=== PATIENT | male | born 1955 | race Caucasian/White ===

== ENCOUNTER 2018-03-24 06:08 | Day surgery (SDC) | payer OTHER ==
[~2018-03-24] VITALS: Ht 175.2 cm; Wt 102.2 kg
[~2018-03-24 06:08] MED LIST: ASPI81CH PO; ATOR10 PO; BENAML20/5 PO; Buspirone HCl7.5 MG PO; CITA20 PO; ESCI10; FERR325 PO; Feosol45 MG PO; Lotrel 10-40 M1 EACH; METO50ER
[2018-03-24] MEDS ORDERED: METO25ER (08:38)
== END 2018-03-24 10:10 | disposition home or self-care (01) ==
LOC: ORSCSDS 06:08
PROVIDERS: Internal Medicine Gastroenterology
PROC: 0DBL8ZX Excision of Transverse Colon, Via Natural or Artificial Opening Endoscopic, Diagnostic (ICD-10-PCS; principal; 2018-03-24 09:15)
DX: Z12.11 Encounter for screening for malignant neoplasm of colon (principal); D12.3 Benign neoplasm of transverse colon; K57.30 Diverticulosis of large intestine without perforation or abscess without bleeding; K64.8 Other hemorrhoids; Z86.010 Personal history of colon polyps; I10 Essential (primary) hypertension; E78.5 Hyperlipidemia, unspecified; Z87.891 Personal history of nicotine dependence; Z79.82 Long term (current) use of aspirin; Z79.899 Other long term (current) drug therapy
CPT/HCPCS: 88305; J7120

== ENCOUNTER 2019-01-27 19:03 | Emergency (ER) | payer OTHER ==
[~2019-01-27] VITALS: Ht 177.8 cm; Wt 95.2 kg
[~2019-01-27 19:03] MED LIST changes: +METO25ER
== END 2019-01-27 20:46 | disposition home or self-care (01) ==
LOC: ER 19:03
DX: Z48.01 Encounter for change or removal of surgical wound dressing (principal)
CPT/HCPCS: 99282

== ENCOUNTER → 2019-02-04 | Outpatient (CLI) | payer OTHER | END | disposition home or self-care (01) | LOC: LAB EV 17:00 → LAB SHORT 17:00 | DX: T81.40XA Infection following a procedure, unspecified, initial encounter (principal) | CPT/HCPCS: 87070; 87077; 87147; 87186; 87205 ==

== ENCOUNTER 2019-02-07 21:28 | Emergency (ER) | payer OTHER ==
[~2019-02-07] VITALS: Ht 175.3 cm; Wt 92.5 kg
[2019-02-07 23:08] LABS: BASOPHILS ABSOLUTE AUTO 0.07 K/mm3 (0.00-0.23); BASOPHILS PERCENT AUTO 1 % (0-2); EOSINOPHILS ABSOLUTE AUTO 0.08 K/mm3 (0.00-0.68); EOSINOPHILS PERCENT AUTO 1 % (0-6); IMMATURE GRAN ABSOLUTE AUTO 0.06 K/mm3 (0.00-0.10); IMMATURE GRAN PERCENT AUTO 1 % (0-1); LYMPHOCYTES ABSOLUTE AUTO 1.44 K/mm3 (0.84-5.20); LYMPHOCYTES PERCENT AUTO 18 % (21-46); MONOCYTES ABSOLUTE AUTO 0.95 K/mm3 (0.16-1.47); MONOCYTES PERCENT AUTO 12 % (4-13); Mean Corpuscular HGB 31.3 pg (26.0-34.0); Mean Corpuscular HGB Conc 32.4 g/dL (31.5-36.5); Mean Corpuscular Volume 97 fL (80-100); NEUTROPHILS ABSOLUTE AUTO 5.38 K/mm3 (1.96-9.15); NEUTROPHILS PERCENT AUTO 67 % (41-73); Platelet Count 316 K/mm3 (150-400); RDW Coefficient Variation 13.8 % (11.7-14.2); RDW Standard Deviation 49.1 fL (35.1-46.3); Red Blood Cell Count 3.51 M/mm3 (4.30-5.90); White Blood Cell Count 7.98 K/mm3 (4.00-11.30)
[2019-02-07 23:22] LABS: Anion Gap 5 mmol/L (6-16); Blood Urea Nitrogen 7 mg/dL (8-24); Bun/Creatinine Ratio 6.1 (12.0-20.0); CO2, Blood 25 mmol/L (21-32); Calcium, Blood 8.3 mg/dL (8.5-10.1); Chloride, Blood 106 mmol/L (98-108); Creatinine, Blood 1.15 mg/dL (0.60-1.20); Glomerular Filtration Rate >60 (60-); Glucose, Blood 101 mg/dL (70-99); Potassium, Blood 3.8 mmol/L (3.5-5.5); Sodium, Blood 136 mmol/L (136-145)
== END 2019-02-08 00:19 | disposition home or self-care (01) ==
LOC: ER 21:28
PROVIDERS: Physician Assistant
DX: T81.40XA Infection following a procedure, unspecified, initial encounter (principal); L03.116 Cellulitis of left lower limb; I10 Essential (primary) hypertension; E78.00 Pure hypercholesterolemia, unspecified; F41.9 Anxiety disorder, unspecified; Z87.891 Personal history of nicotine dependence
CPT/HCPCS: 80048; 85025; 99284; J3370

== ENCOUNTER → 2019-09-07 | Outpatient (CLI) | payer OTHER ==
[~2019-09-07] MED LIST changes: +Ativan0.5 MG PO
[2019-09-07 08:32] LABS: BASOPHILS ABSOLUTE AUTO 0.05 K/mm3 (0.00-0.23); BASOPHILS PERCENT AUTO 1 % (0-2); EOSINOPHILS ABSOLUTE AUTO 0.03 K/mm3 (0.00-0.68); EOSINOPHILS PERCENT AUTO 0 % (0-6); Hematocrit 42.3 % (37.0-53.0); Hemoglobin 15.3 g/dL (13.5-17.5); IMMATURE GRAN ABSOLUTE AUTO 0.09 K/mm3 (0.00-0.10); IMMATURE GRAN PERCENT AUTO 1 % (0-1); LYMPHOCYTES PERCENT AUTO 13 % (21-46); MONOCYTES ABSOLUTE AUTO 0.83 K/mm3 (0.16-1.47); MONOCYTES PERCENT AUTO 12 % (4-13); Mean Corpuscular HGB Conc 36.2 g/dL (31.5-36.5); Mean Corpuscular Volume 94 fL (80-100); Mean Platelet Volume 9.3 fL (9.1-12.4); NEUTROPHILS ABSOLUTE AUTO 5.04 K/mm3 (1.96-9.15); NEUTROPHILS PERCENT AUTO 73 % (41-73); Platelet Count 310 K/mm3 (150-400); RDW Coefficient Variation 12.4 % (11.7-14.2); RDW Standard Deviation 43.2 fL (35.1-46.3); White Blood Cell Count 6.94 K/mm3 (4.00-11.30)
[2019-09-07 08:52] LABS: Alanine Aminotransfer (ALT/SGP 43 U/L (12-78); Albumin, Blood 4.6 g/dL (3.4-5.0); Albumin/Globulin Ratio 1.2 (0.8-1.8); Alk Phos 58 U/L (40-126); Anion Gap 16 mmol/L (6-16); Aspartate Aminotrans (AST/SGOT 31 U/L (12-37); Bilirubin, Total 0.7 mg/dL (0.1-1.0); Blood Urea Nitrogen 6 mg/dL (8-24); Bun/Creatinine Ratio 5.2 (12.0-20.0); CO2, Blood 24 mmol/L (21-32); Calcium, Blood 9.3 mg/dL (8.5-10.1); Chloride, Blood 90 mmol/L (98-108); Creatinine, Blood 1.15 mg/dL (0.60-1.20); Free Thyroxine 1.14 ng/dL (0.70-1.60); Globulin, Blood 3.8 g/dL (2.2-4.0); Glomerular Filtration Rate >60 (60-); Glucose, Blood 108 mg/dL (70-99); Potassium, Blood 5.5 mmol/L (3.5-5.5); Sodium, Blood 130 mmol/L (136-145); Thyroid Stimulating Hormone 1.808 uIU/mL (0.360-4.800); Total Protein, Blood 8.4 g/dL (6.4-8.2)
[2019-09-07 09:09] LABS: CPK Creatine Kinase 106 U/L (39-308)
[2019-09-07 09:20] LABS: Troponin I <0.017 ng/mL (0.000-0.040)
== END | disposition home or self-care (01) ==
LOC: LAB EV 08:27 → LAB SHORT 08:27
PROVIDERS: General Practice
DX: R25.1 Tremor, unspecified (principal); R53.83 Other fatigue; I10 Essential (primary) hypertension
CPT/HCPCS: 80053; 82550; 83690; 83880; 84439; 84443; 84484; 85025

== ENCOUNTER 2019-09-25 19:44 | Emergency (ER) | payer OTHER ==
[~2019-09-25] VITALS: Ht 175.3 cm; Wt 95.2 kg
[~2019-09-25 19:44] MED LIST changes: -Ativan0.5 MG PO
[2019-09-25 20:32] LABS: BASOPHILS ABSOLUTE AUTO 0.03 K/mm3 (0.00-0.23); BASOPHILS PERCENT AUTO 1 % (0-2); EOSINOPHILS ABSOLUTE AUTO 0.01 K/mm3 (0.00-0.68); EOSINOPHILS PERCENT AUTO 0 % (0-6); Hematocrit 40.7 % (37.0-53.0); Hemoglobin 14.6 g/dL (13.5-17.5); IMMATURE GRAN ABSOLUTE AUTO 0.06 K/mm3 (0.00-0.10); IMMATURE GRAN PERCENT AUTO 1 % (0-1); LYMPHOCYTES ABSOLUTE AUTO 1.35 K/mm3 (0.84-5.20); LYMPHOCYTES PERCENT AUTO 21 % (21-46); MONOCYTES ABSOLUTE AUTO 0.79 K/mm3 (0.16-1.47); MONOCYTES PERCENT AUTO 12 % (4-13); Mean Corpuscular HGB 33.6 pg (26.0-34.0); Mean Corpuscular HGB Conc 35.9 g/dL (31.5-36.5); Mean Corpuscular Volume 94 fL (80-100); Mean Platelet Volume 8.7 fL (9.1-12.4); NEUTROPHILS ABSOLUTE AUTO 4.17 K/mm3 (1.96-9.15); NEUTROPHILS PERCENT AUTO 65 % (41-73); Platelet Count 352 K/mm3 (150-400); RDW Coefficient Variation 12.1 % (11.7-14.2); RDW Standard Deviation 41.9 fL (35.1-46.3); Red Blood Cell Count 4.34 M/mm3 (4.30-5.90); White Blood Cell Count 6.41 K/mm3 (4.00-11.30)
[2019-09-25 20:55] LABS: Alanine Aminotransfer (ALT/SGP 49 U/L (12-78); Albumin, Blood 4.3 g/dL (3.4-5.0); Alk Phos 56 U/L (50-136); Anion Gap 15 mmol/L (6-16); Aspartate Aminotrans (AST/SGOT 30 U/L (12-37); Bilirubin, Total 0.6 mg/dL (0.1-1.0); Blood Urea Nitrogen 6 mg/dL (8-24); Bun/Creatinine Ratio 7.1 (12.0-20.0); CO2, Blood 21 mmol/L (21-32); Chloride, Blood 91 mmol/L (98-108); Creatinine, Blood 0.85 mg/dL (0.60-1.20); Globulin, Blood 4.1 g/dL (2.2-4.0); Glomerular Filtration Rate >60 (60-); Glucose, Blood 84 mg/dL (70-99); Magnesium, Blood 2.3 mg/dL (1.6-2.4); Potassium, Blood 4.3 mmol/L (3.5-5.5); Sodium, Blood 127 mmol/L (136-145); Total Protein, Blood 8.4 g/dL (6.4-8.2); Troponin I <0.015 ng/mL (0.000-0.040)
[2019-09-25 22:52] LABS: Source, Urine Clean Catch
[2019-09-25 22:56] LABS: Bilirubin, Urine Neg (Neg); Blood, Urine Neg (Neg); Glucose Qualitative, Urine Neg (Neg); Ketones, Urine 3+ (Neg); Leukocyte Esterase, Urine Neg (Neg); Nitrite, Urine Neg (Neg); Protein, Urine Neg (Neg); Specific Gravity, Urine 1.005 (1.003-1.022); Urobilinogen, Urine NORM (Normal)
[2019-09-25 23:05] LABS: Appearance, Urine Clear (Clear); Color, Urine Yellow (P-Yellow)
[2019-09-26] MEDS ORDERED: Ativan0.5 MG PO (00:12)
== END 2019-09-26 01:20 | disposition home or self-care (01) ==
LOC: ER 19:44
PROVIDERS: Physician Assistant
DX: R11.2 Nausea with vomiting, unspecified (principal); F43.22 Adjustment disorder with anxiety; E87.1 Hypo-osmolality and hyponatremia; I10 Essential (primary) hypertension; E78.00 Pure hypercholesterolemia, unspecified; Z88.5 Allergy status to narcotic agent; Z79.899 Other long term (current) drug therapy; Z79.82 Long term (current) use of aspirin; Z87.891 Personal history of nicotine dependence
CPT/HCPCS: 36415; 71046; 80053; 81003; 83690; 83735; 84484; 85025; 93005; 93010; 96361; 96374; 96375; 99284-25; A9270-GY; J2060; J2405; J7030

== ENCOUNTER 2021-05-17 12:55 | Emergency (ER) | payer OTHER, MEDICARE ==
[~2021-05-17] VITALS: Ht 175.3 cm; Wt 103.0 kg
[~2021-05-17 12:55] MED LIST changes: +Ativan0.5 MG PO
[2021-05-17 14:25] LABS: BASOPHILS ABSOLUTE AUTO 0.04 K/mm3 (0.00-0.23); BASOPHILS PERCENT AUTO 1 % (0-2); EOSINOPHILS ABSOLUTE AUTO 0.03 K/mm3 (0.00-0.68); EOSINOPHILS PERCENT AUTO 0 % (0-6); Hematocrit 40.7 % (37.0-53.0); Hemoglobin 14.3 g/dL (13.5-17.5); IMMATURE GRAN ABSOLUTE AUTO 0.15 K/mm3 (0.00-0.10); IMMATURE GRAN PERCENT AUTO 2 % (0-1); LYMPHOCYTES ABSOLUTE AUTO 0.77 K/mm3 (0.84-5.20); LYMPHOCYTES PERCENT AUTO 10 % (21-46); MONOCYTES ABSOLUTE AUTO 0.63 K/mm3 (0.16-1.47); MONOCYTES PERCENT AUTO 8 % (4-13); Mean Corpuscular HGB 34.7 pg (26.0-34.0); Mean Corpuscular HGB Conc 35.1 g/dL (31.5-36.5); Mean Corpuscular Volume 99 fL (80-100); Mean Platelet Volume 9.2 fL (9.1-12.4); NEUTROPHILS ABSOLUTE AUTO 5.88 K/mm3 (1.96-9.15); NEUTROPHILS PERCENT AUTO 78 % (41-73); Platelet Count 239 K/mm3 (150-400); RDW Coefficient Variation 12.3 % (11.7-14.2); RDW Standard Deviation 44.4 fL (35.1-46.3); Red Blood Cell Count 4.12 M/mm3 (4.30-5.90)
[2021-05-17 14:55] LABS: Anion Gap 10 mmol/L (6-16); Blood Urea Nitrogen 8 mg/dL (8-24); CO2, Blood 22 mmol/L (21-32); Calcium, Blood 8.8 mg/dL (8.5-10.1); Chloride, Blood 96 mmol/L (98-108); Glomerular Filtration Rate >60 (60-); Glucose, Blood 90 mg/dL (70-99); Potassium, Blood 4.4 mmol/L (3.5-5.5); Sodium, Blood 128 mmol/L (136-145); Troponin I <0.015 ng/mL (0.000-0.040)
== END 2021-05-17 17:38 | disposition home or self-care (01) ==
LOC: ER 12:55
PROVIDERS: Student in an Organized Health Care Education/Training Program
DX: R55 Syncope and collapse (principal); T44.7X5A Adverse effect of beta-adrenoreceptor antagonists, initial encounter; T46.1X5A Adverse effect of calcium-channel blockers, initial encounter; Y92.59 Other trade areas as the place of occurrence of the external cause; I49.3 Ventricular premature depolarization; I47.2 Ventricular tachycardia
CPT/HCPCS: 36415; 80048; 84484; 85025; 93005; 93010; 93306; 99284-25; J7030

== ENCOUNTER 2021-05-19 09:50 | Emergency (ER) | payer OTHER, MEDICARE ==
[~2021-05-19] VITALS: Ht 175.3 cm; Wt 103.0 kg
[2021-05-19 10:22] LABS: BASOPHILS ABSOLUTE AUTO 0.03 K/mm3 (0.00-0.23); BASOPHILS PERCENT AUTO 1 % (0-2); EOSINOPHILS ABSOLUTE AUTO 0.03 K/mm3 (0.00-0.68); EOSINOPHILS PERCENT AUTO 1 % (0-6); Hematocrit 39.1 % (37.0-53.0); Hemoglobin 13.8 g/dL (13.5-17.5); IMMATURE GRAN ABSOLUTE AUTO 0.13 K/mm3 (0.00-0.10); IMMATURE GRAN PERCENT AUTO 2 % (0-1); LYMPHOCYTES ABSOLUTE AUTO 0.65 K/mm3 (0.84-5.20); LYMPHOCYTES PERCENT AUTO 11 % (21-46); MONOCYTES ABSOLUTE AUTO 0.56 K/mm3 (0.16-1.47); MONOCYTES PERCENT AUTO 9 % (4-13); Mean Corpuscular HGB 34.2 pg (26.0-34.0); Mean Corpuscular HGB Conc 35.3 g/dL (31.5-36.5); Mean Corpuscular Volume 97 fL (80-100); Mean Platelet Volume 8.9 fL (9.1-12.4); NEUTROPHILS ABSOLUTE AUTO 4.77 K/mm3 (1.96-9.15); NEUTROPHILS PERCENT AUTO 77 % (41-73); Platelet Count 228 K/mm3 (150-400); RDW Coefficient Variation 12.3 % (11.7-14.2); RDW Standard Deviation 44.4 fL (35.1-46.3); Red Blood Cell Count 4.03 M/mm3 (4.30-5.90); White Blood Cell Count 6.17 K/mm3 (4.00-11.30)
[2021-05-19 10:41] LABS: Alanine Aminotransfer (ALT/SGP 62 U/L (12-78); Albumin, Blood 3.9 g/dL (3.4-5.0); Alk Phos 54 U/L (50-136); Anion Gap 9 mmol/L (6-16); Aspartate Aminotrans (AST/SGOT 43 U/L (12-37); Bilirubin, Total 0.7 mg/dL (0.1-1.0); Blood Urea Nitrogen 7 mg/dL (8-24); Bun/Creatinine Ratio 6.9 (12.0-20.0); CO2, Blood 23 mmol/L (21-32); Calcium, Blood 8.9 mg/dL (8.5-10.1); Chloride, Blood 95 mmol/L (98-108); Creatinine, Blood 1.02 mg/dL (0.60-1.20); Globulin, Blood 4.1 g/dL (2.2-4.0); Glomerular Filtration Rate >60 (60-); Glucose, Blood 129 mg/dL (70-99); Potassium, Blood 4.7 mmol/L (3.5-5.5); Sodium, Blood 127 mmol/L (136-145)
== END 2021-05-19 12:14 | disposition home or self-care (01) ==
LOC: ER 09:50
PROVIDERS: Emergency Medicine
DX: R53.1 Weakness (principal); I25.10 Atherosclerotic heart disease of native coronary artery without angina pectoris; I10 Essential (primary) hypertension; E78.5 Hyperlipidemia, unspecified; Z79.899 Other long term (current) drug therapy; Z79.82 Long term (current) use of aspirin; Z88.5 Allergy status to narcotic agent
CPT/HCPCS: 36415; 80053; 84484; 85025; 93005; 93010; 93246; 99284-25

== ENCOUNTER 2021-06-24 11:21 | Inpatient (IN) | payer OTHER, MEDICARE ==
[~2021-06-24] VITALS: Ht 177.8 cm; Wt 97.5 kg
[~2021-06-24 11:21] MED LIST changes: -ASPI81CH PO; +Aspir 8181 MG PO; +FEROSUL325 M1 PO; -Feosol45 MG PO
[2021-06-24 12:44] LABS: Hematocrit 35.8 % (37.0-53.0); Hemoglobin 13.2 g/dL (13.5-17.5); Mean Corpuscular HGB 34.5 pg (26.0-34.0); Mean Corpuscular HGB Conc 36.9 g/dL (31.5-36.5); Mean Corpuscular Volume 94 fL (80-100); Mean Platelet Volume 8.9 fL (9.1-12.4); Platelet Count 265 K/mm3 (150-400); RDW Standard Deviation 41.5 fL (35.1-46.3); Red Blood Cell Count 3.83 M/mm3 (4.30-5.90); White Blood Cell Count 7.59 K/mm3 (4.00-11.30)
[2021-06-24] MEDS ORDERED: CILO100 PO (12:49)
[2021-06-24] MEDS ORDERED: BUPROPION XL150 M1 PO (12:50)
[2021-06-24] MEDS ORDERED: LOSA25 PO (12:51)
[2021-06-24] MEDS ORDERED: ALPR.5 PO (12:52)
[2021-06-24 13:16] LABS: Alanine Aminotransfer (ALT/SGP 107 U/L (12-78); Albumin, Blood 3.3 g/dL (3.4-5.0); Albumin/Globulin Ratio 0.9 (0.8-1.8); Alk Phos 67 U/L (50-136); Anion Gap 10 mmol/L (6-16); Aspartate Aminotrans (AST/SGOT 52 U/L (12-37); Blood Urea Nitrogen 8 mg/dL (8-24); Bun/Creatinine Ratio 7.7 (12.0-20.0); CO2, Blood 26 mmol/L (21-32); Calcium, Blood 8.7 mg/dL (8.5-10.1); Chloride, Blood 83 mmol/L (98-108); Creatinine, Blood 1.04 mg/dL (0.60-1.20); Globulin, Blood 3.8 g/dL (2.2-4.0); Glomerular Filtration Rate >60 (60-); Glucose, Blood 81 mg/dL (70-99); Potassium, Blood 4.9 mmol/L (3.5-5.5); Sodium, Blood 119 mmol/L (136-145); Total Protein, Blood 7.1 g/dL (6.4-8.2)
[2021-06-24 13:30] LABS: BASOPHILS PERCENT MAN 0 % (0-2); EOSINOPHILS PERCENT MAN 0 % (0-6); LYMPHOCYTES ABSOLUTE MAN 0.83 K/mm3 (0.84-5.20); LYMPHOCYTES PERCENT MAN 11 % (21-46); METAMYELOCYTE ABSOLUTE MAN 0.07 K/mm3 (0.00-0.00); METAMYELOCYTE PERCENT MAN 1 % (0-0); MONOCYTES ABSOLUTE MAN 0.45 K/mm3 (0.16-1.47); MONOCYTES PERCENT MAN 6 % (4-13); MYELOCYTE ABSOLUTE MAN 0.07 K/mm3 (0.00-0.00); MYELOCYTE PERCENT MAN 1 % (0-0); NEUTROPHILS ABSOLUTE MAN 6.14 K/mm3 (1.96-9.15); SEG NEUTROPHILS PERCENT MAN 81 % (41-73); TOTAL CELLS COUNTED 100
[2021-06-24] MEDS ORDERED: ATORVASTATIN CA20 MG PO (14:25)
[2021-06-24] MEDS ORDERED: AMLODIPINE-BEN1 EAC3 PO (14:27)
[2021-06-24] MEDS ORDERED: METO50ER PO (14:27)
--- NOTE | 2021-06-24 17:31 | NUR ---
SHIFT SUMMARY PATIENT ARRIVED TO THE ROOM AROUND 1600 FROM THE ER. PATIENT WAS ORIENTED TO THE ROOM AND ADMISSION COMPLETED WITH THE HELP OF SON KIMBERLEY WHO IS THE PRIMARY CONTACT FOR PATIENT. PATIENT HAS BEEN SLEEPING SINCE ADMISSION WAS COMPLETE. PATIENT STATES "THAT HE HAS NOT EATEN FOR 2 WEEKS AND HAS HAD 6-7 BEERS DAILY." VITAL SIGNS REVIEWED AND WILL CONTINUE TO MONITOR UNTIL END OF SHIFT.
[2021-06-24 18:56] LABS: Anion Gap 11 mmol/L (6-16); Blood Urea Nitrogen 10 mg/dL (8-24); Bun/Creatinine Ratio 9.9 (12.0-20.0); CO2, Blood 24 mmol/L (21-32); Calcium, Blood 9.2 mg/dL (8.5-10.1); Chloride, Blood 85 mmol/L (98-108); Creatinine, Blood 1.01 mg/dL (0.60-1.20); Glomerular Filtration Rate >60 (60-); Glucose, Blood 88 mg/dL (70-99); Potassium, Blood 5.8 mmol/L (3.5-5.5); Sodium, Blood 120 mmol/L (136-145)
[2021-06-25 00:47] LABS: Anion Gap 12 mmol/L (6-16); Blood Urea Nitrogen 14 mg/dL (8-24); Bun/Creatinine Ratio 12.3 (12.0-20.0); CO2, Blood 24 mmol/L (21-32); Calcium, Blood 8.9 mg/dL (8.5-10.1); Chloride, Blood 86 mmol/L (98-108); Creatinine, Blood 1.14 mg/dL (0.60-1.20); Glomerular Filtration Rate >60 (60-); Glucose, Blood 88 mg/dL (70-99); Potassium, Blood 4.4 mmol/L (3.5-5.5); Sodium, Blood 122 mmol/L (136-145)
--- NOTE | 2021-06-25 05:07 | NUR ---
SHIFT SUMMARY AOX4. VSS. TELE NSR c BBB HR 70'S. DENIES PAIN, N/V OR SOB. CIWA 6-7, FOR ANXIETY & BUE TREMORS. LS DIM. HAS OCCASIONAL CONGESTED SOUNDING COUGH. LAST NA @122, RECIEVING NS @75ML/HR. CALL LIGHT IN REACH, PT ABLE TO MAKE NEEDS KNOWN. WCTM.
[2021-06-25 06:05] LABS: Hematocrit 34.8 % (37.0-53.0); Hemoglobin 12.6 g/dL (13.5-17.5); Mean Corpuscular HGB 34.4 pg (26.0-34.0); Mean Corpuscular HGB Conc 36.2 g/dL (31.5-36.5); Mean Corpuscular Volume 95 fL (80-100); Mean Platelet Volume 8.9 fL (9.1-12.4); Platelet Count 215 K/mm3 (150-400); RDW Coefficient Variation 12.2 % (11.7-14.2); RDW Standard Deviation 43.1 fL (35.1-46.3); Red Blood Cell Count 3.66 M/mm3 (4.30-5.90); White Blood Cell Count 6.92 K/mm3 (4.00-11.30)
[2021-06-25 06:21] LABS: Anion Gap 10 mmol/L (6-16); Blood Urea Nitrogen 13 mg/dL (8-24); Bun/Creatinine Ratio 11.7 (12.0-20.0); CO2, Blood 25 mmol/L (21-32); Calcium, Blood 8.7 mg/dL (8.5-10.1); Chloride, Blood 87 mmol/L (98-108); Creatinine, Blood 1.11 mg/dL (0.60-1.20); Glomerular Filtration Rate >60 (60-); Glucose, Blood 96 mg/dL (70-99); Potassium, Blood 4.7 mmol/L (3.5-5.5); Sodium, Blood 122 mmol/L (136-145)
[2021-06-25 06:27] LABS: BASOPHILS ABSOLUTE MAN 0.06 K/mm3 (0.00-0.23); BASOPHILS PERCENT MAN 1 % (0-2); EOSINOPHILS ABSOLUTE MAN 0.06 K/mm3 (0.00-0.68); EOSINOPHILS PERCENT MAN 1 % (0-6); LYMPHOCYTES ABSOLUTE MAN 0.34 K/mm3 (0.84-5.20); LYMPHOCYTES PERCENT MAN 5 % (21-46); METAMYELOCYTE ABSOLUTE MAN 0.06 K/mm3 (0.00-0.00); METAMYELOCYTE PERCENT MAN 1 % (0-0); MONOCYTES ABSOLUTE MAN 0.41 K/mm3 (0.16-1.47); MONOCYTES PERCENT MAN 6 % (4-13); MYELOCYTE ABSOLUTE MAN 0.13 K/mm3 (0.00-0.00); MYELOCYTE PERCENT MAN 2 % (0-0); NEUTROPHILS ABSOLUTE MAN 5.81 K/mm3 (1.96-9.15); SEG NEUTROPHILS PERCENT MAN 84 % (41-73); TOTAL CELLS COUNTED 100
[2021-06-25 12:27] LABS: Anion Gap 10 mmol/L (6-16); Blood Urea Nitrogen 14 mg/dL (8-24); Bun/Creatinine Ratio 11.9 (12.0-20.0); CO2, Blood 24 mmol/L (21-32); Chloride, Blood 89 mmol/L (98-108); Creatinine, Blood 1.18 mg/dL (0.60-1.20); Glomerular Filtration Rate >60 (60-); Glucose, Blood 103 mg/dL (70-99); Potassium, Blood 4.7 mmol/L (3.5-5.5); Sodium, Blood 123 mmol/L (136-145)
--- NOTE | 2021-06-25 15:10 | NUR ---
06/25/21- per chart review with Dr. Cheng, no plan for d/c at this time. Pt reports that once he d/c, he will be going to alcohol treatment in [place]. PT saw the pt today, they are recommending pt to have outpatient PT when he is done with rehab. Pt reports that he lives with his son and that his other son takes him to his appts and get his groceries. There are 2 steps to get into the home he lives at. Pt uses walker but not in the home. Pt has been found to have mild head trauma due to recent fall.-kjb
--- NOTE | 2021-06-25 16:13 | NUR ---
PT HANDOFF TO FAITH GUERRA. REPORT GIVEN. PT AT THIS TIME IS A/O X 4 STANDBY ASSIST. PT LAST CIWA 5 FOR TREMORS AND NAUSEA. PT GIVEN ZOFRAN AND AT THIS TIME PT IS RESTING WITH EYES SHUT, LIGHTLY SNORING AND RR/E/U.
--- NOTE | 2021-06-25 17:11 | NUR ---
SUMMARY PT SITTING UP IN BED WATCHING TV, PT HAS BEEN PLEASANT AND COOPERATIVE T/O THE DAY, UP WITH STANDBY ASSIST, CIWA'S HAVE BEEN LESS THAN 10 T/O THE DAY, ABD ULTRASOUND JUST FINISHED, NO COMPLAINTS, VSS, WILL CONT TO MONITOR
[2021-06-25 18:53] LABS: Anion Gap 10 mmol/L (6-16); Blood Urea Nitrogen 13 mg/dL (8-24); Bun/Creatinine Ratio 12.1 (12.0-20.0); CO2, Blood 22 mmol/L (21-32); Calcium, Blood 8.9 mg/dL (8.5-10.1); Chloride, Blood 91 mmol/L (98-108); Creatinine, Blood 1.07 mg/dL (0.60-1.20); Glomerular Filtration Rate >60 (60-); Glucose, Blood 105 mg/dL (70-99); Potassium, Blood 4.7 mmol/L (3.5-5.5); Sodium, Blood 123 mmol/L (136-145)
--- NOTE | 2021-06-25 19:00 | NUR ---
ASSUMED CARE RECEIVED REPORT FROM FAITH GUERRA. PT RESTING, IN NAD. NO ACUTE NEEDS ASSESSED AT THIS TIME. CALL LIGHT, POSSESSIONS IN REACH, BED IN LOW AND LOCKED POSITION WITH ALARMS ON.
[2021-06-26 00:37] LABS: Anion Gap 10 mmol/L (6-16); Blood Urea Nitrogen 14 mg/dL (8-24); Bun/Creatinine Ratio 12.1 (12.0-20.0); CO2, Blood 24 mmol/L (21-32); Calcium, Blood 8.6 mg/dL (8.5-10.1); Chloride, Blood 91 mmol/L (98-108); Creatinine, Blood 1.16 mg/dL (0.60-1.20); Glomerular Filtration Rate >60 (60-); Glucose, Blood 101 mg/dL (70-99); Potassium, Blood 4.6 mmol/L (3.5-5.5); Sodium, Blood 125 mmol/L (136-145)
--- NOTE | 2021-06-26 04:27 | NUR ---
PHOTO LAB SPECIALIST SUMMARY PT RESTING, IN NAD. NO ACUTE CONCERNS TO REPORT OVERNIGHT. NOT SCORING ON CIWAs. PT HAS BEEN PLEASANT AND COOPERATIVE WITH CARES. VS REVIEWED, SLIGHTLY HYPERTENSIVE, OTHER VS WNL. DENIES PAIN. CALLS APPROPRIATELY TO MAKE NEEDS KNOWN. NO ACUTE NEEDS ASSESSED AT THIS TIME. CALL LIGHT, POSSESSIONS IN REACH, BED IN LOW AND LOCKED POSITION. WILL CONTINUE TO PROVIDE CARE NEEDED UNTIL REPORT GIVEN TO ONCOMING RN.
[2021-06-26 06:55] LABS: Anion Gap 8 mmol/L (6-16); Blood Urea Nitrogen 13 mg/dL (8-24); Bun/Creatinine Ratio 11.4 (12.0-20.0); CO2, Blood 26 mmol/L (21-32); Calcium, Blood 8.9 mg/dL (8.5-10.1); Chloride, Blood 90 mmol/L (98-108); Creatinine, Blood 1.14 mg/dL (0.60-1.20); Glomerular Filtration Rate >60 (60-); Glucose, Blood 98 mg/dL (70-99); Potassium, Blood 4.7 mmol/L (3.5-5.5); Sodium, Blood 124 mmol/L (136-145)
--- NOTE | 2021-06-26 12:48 | NUR ---
06/26/21- per chart review with Dr. Cheng, the plan is for the pt to d/c to his son tomorrow and son will take him to [place] for alcohol treatment. -sakina
[2021-06-26 13:43] LABS: Anion Gap 10 mmol/L (6-16); Blood Urea Nitrogen 12 mg/dL (8-24); Bun/Creatinine Ratio 10.2 (12.0-20.0); CO2, Blood 24 mmol/L (21-32); Calcium, Blood 8.9 mg/dL (8.5-10.1); Chloride, Blood 91 mmol/L (98-108); Creatinine, Blood 1.18 mg/dL (0.60-1.20); Glomerular Filtration Rate >60 (60-); Glucose, Blood 93 mg/dL (70-99); Potassium, Blood 4.6 mmol/L (3.5-5.5); Sodium, Blood 125 mmol/L (136-145)
--- NOTE | 2021-06-26 18:23 | NUR ---
PT IS ALERT ORIENTED.PT ON ROOM AIR. PT IS ON TELE RUNNING SR,BUNDLE BRANCH BLOCK AT 81.PT DENIES PAIN,N/V,SOB.PT IS STANDBY ASSIST.PT IS LAYING CONFORTABLE IN BED,BED IN LOW POSITION, WILL CONTINUE TO MONITOR.
--- NOTE | 2021-06-26 19:00 | NUR ---
ASSUMED CARE RECEIVED REPORT FROM FAITH VIDALES. PT RESTING, IN NAD. NO ACUTE NEEDS ASSESSED AT THIS TIME. CALL LIGHT, POSSESSIONS IN REACH. WCTM.
--- NOTE | 2021-06-26 19:00 | NUR ---
ASSUMED CARE RECEIVED REPORT FROM FAITH VALDOVINOS. PT RESTING, IN NAD. PT REQUESTING PAIN MEDICATION AND BOWEL CARE. WILL SPEAK TO PROVIDER. NO OTHER ACUTE NEEDS ASSESSED AT THIS TIME. CALL LIGHT, POSSESSIONS IN REACH, BED IN LOW AND LOCKED POSITION WITH ALARMS ON.
--- NOTE | 2021-06-27 04:43 | NUR ---
INSPECTOR FUEL HOSE SUMMARY PT ASLEEP, IN NAD. APPEARED TO SLEEP WELL OVERNIGHT. CIWAS NEGATIVE. NO ACUTE CONCERNS TO REPORT OVERNIGHT. NO ACUTE NEEDS ASSESSED AT THIS TIME. AWAITING D/C TO INPT PSYCH IN [place]. CALL LIGHT, POSSESSIONS IN REACH, BED IN LOW AND LOCKED POSITION. WILL CONTINUE TO PROVIDE CARE UNTIL REPORT GIVEN TO ONCOMING RN.
[2021-06-27 05:21] LABS: BASOPHILS ABSOLUTE AUTO 0.04 K/mm3 (0.00-0.23); BASOPHILS PERCENT AUTO 1 % (0-2); EOSINOPHILS ABSOLUTE AUTO 0.02 K/mm3 (0.00-0.68); EOSINOPHILS PERCENT AUTO 0 % (0-6); Hematocrit 31.8 % (37.0-53.0); Hemoglobin 11.4 g/dL (13.5-17.5); IMMATURE GRAN ABSOLUTE AUTO 0.23 K/mm3 (0.00-0.10); IMMATURE GRAN PERCENT AUTO 5 % (0-1); LYMPHOCYTES ABSOLUTE AUTO 0.91 K/mm3 (0.84-5.20); LYMPHOCYTES PERCENT AUTO 19 % (21-46); MONOCYTES ABSOLUTE AUTO 0.71 K/mm3 (0.16-1.47); MONOCYTES PERCENT AUTO 15 % (4-13); Mean Corpuscular HGB 34.7 pg (26.0-34.0); Mean Corpuscular HGB Conc 35.8 g/dL (31.5-36.5); Mean Corpuscular Volume 97 fL (80-100); NEUTROPHILS ABSOLUTE AUTO 2.99 K/mm3 (1.96-9.15); NEUTROPHILS PERCENT AUTO 61 % (41-73); Platelet Count 213 K/mm3 (150-400); RDW Coefficient Variation 12.2 % (11.7-14.2); RDW Standard Deviation 43.7 fL (35.1-46.3); Red Blood Cell Count 3.29 M/mm3 (4.30-5.90)
[2021-06-27 05:45] LABS: Anion Gap 9 mmol/L (6-16); Blood Urea Nitrogen 12 mg/dL (8-24); Bun/Creatinine Ratio 10.9 (12.0-20.0); CO2, Blood 25 mmol/L (21-32); Calcium, Blood 8.8 mg/dL (8.5-10.1); Chloride, Blood 92 mmol/L (98-108); Glomerular Filtration Rate >60 (60-); Glucose, Blood 90 mg/dL (70-99); Potassium, Blood 4.6 mmol/L (3.5-5.5); Sodium, Blood 126 mmol/L (136-145)
--- NOTE | 2021-06-27 14:59 | NUR ---
spoke with son Zeke and he and the doctor have decided that it is best that the pt stay through the weekend and d/c Wednesday morning and son will drive him to treatment in [place]. -sakina ([email or web address], 2:58 PM)
--- NOTE | 2021-06-27 18:36 | NUR ---
PT IS ALERT ORIENTED, PT IS ON FLUID RESTRICTION,PT BEEN RUNNING SINUS RYTHM,PT ASSESSMENT REMAINS UNCHANGED,PT IS IN BED,BED IN LOW POSITON,CALL IN REACH WILL CONTINUE TO MONITOR.
--- NOTE | 2021-06-28 05:36 | NUR ---
END OF SHIFT SUMMARY PATIENT MAINTAINED STABLE VS AND LODGED NILL FRESH COMPLAINT. WILL CONTINUE TO MONITOR
[2021-06-28 09:04] LABS: Albumin, Blood 2.9 g/dL (3.4-5.0); Anion Gap 6 mmol/L (6-16); Blood Urea Nitrogen 10 mg/dL (8-24); Bun/Creatinine Ratio 9.4 (12.0-20.0); CO2, Blood 29 mmol/L (21-32); Calcium, Blood 8.7 mg/dL (8.5-10.1); Chloride, Blood 90 mmol/L (98-108); Creatinine, Blood 1.06 mg/dL (0.60-1.20); Glomerular Filtration Rate >60 (60-); Glucose, Blood 99 mg/dL (70-99); Phosphorus, Blood 3.3 mg/dL (2.5-4.9); Potassium, Blood 4.4 mmol/L (3.5-5.5); Sodium, Blood 125 mmol/L (136-145)
--- NOTE | 2021-06-28 19:22 | NUR ---
Shift Summary, The patient is A/OX4 to person, place, time and event. The patient is cooperative and pleasent to care. He has been independent in the room. The patient has been on fluid restrictions and he has been cooperitive. The patient's is on RA and denies any chest pain or SOB. The patient is on TELE SINUS RHYTHM 77BPM. The patient was up to his chair for dinner. He stated that is has been a few days since he has a bowel movement and the patient only took one stool softener this am. The patient stated he had an ETOH problem and stated that he had 7 beers daily. He was educated on the physical effects of alcohol and how it can effect the brain. The patient was asked what he will do when he discharges and he stated he has a program to help him with alcohol addiction in [place]. The patient also stated that he has told his family and they are supportive of him. The patient is currenly sleeping in his bed.
[2021-06-29 04:32] LABS: BASOPHILS ABSOLUTE AUTO 0.06 K/mm3 (0.00-0.23); BASOPHILS PERCENT AUTO 1 % (0-2); EOSINOPHILS ABSOLUTE AUTO 0.04 K/mm3 (0.00-0.68); EOSINOPHILS PERCENT AUTO 1 % (0-6); Hematocrit 36.5 % (37.0-53.0); Hemoglobin 12.5 g/dL (13.5-17.5); IMMATURE GRAN ABSOLUTE AUTO 0.16 K/mm3 (0.00-0.10); IMMATURE GRAN PERCENT AUTO 3 % (0-1); LYMPHOCYTES ABSOLUTE AUTO 0.95 K/mm3 (0.84-5.20); LYMPHOCYTES PERCENT AUTO 20 % (21-46); MONOCYTES ABSOLUTE AUTO 0.68 K/mm3 (0.16-1.47); MONOCYTES PERCENT AUTO 14 % (4-13); Mean Corpuscular HGB Conc 34.2 g/dL (31.5-36.5); Mean Corpuscular Volume 99 fL (80-100); NEUTROPHILS ABSOLUTE AUTO 2.98 K/mm3 (1.96-9.15); NEUTROPHILS PERCENT AUTO 61 % (41-73); Platelet Count 264 K/mm3 (150-400); RDW Coefficient Variation 12.4 % (11.7-14.2); RDW Standard Deviation 45.1 fL (35.1-46.3); Red Blood Cell Count 3.68 M/mm3 (4.30-5.90); White Blood Cell Count 4.87 K/mm3 (4.00-11.30)
--- NOTE | 2021-06-29 04:49 | NUR ---
SHIFT SUMMARY NO ACUTE CHANGES TO REPORT THIS SHIFT. PT HAS RESTED MOST OF THE NIGHT, AND HAS DENIED NEEDS. HE HAS BEEN INDEPENDENT IN THE ROOM. VITALS ARE STABLE. BOWEL CARE CONTINUED THIS SHIFT ORDERED FOR CONSTIPATION. PLAN IS FOR DISCHARGE TO REHAB FACILITY [place] ON WEDNESDAY. BED IN LOWEST POSITION, CALL LIGHT WITHIN REACH.
[2021-06-29 04:56] LABS: Anion Gap 6 mmol/L (6-16); Blood Urea Nitrogen 11 mg/dL (8-24); Bun/Creatinine Ratio 9.7 (12.0-20.0); CO2, Blood 28 mmol/L (21-32); Chloride, Blood 92 mmol/L (98-108); Creatinine, Blood 1.13 mg/dL (0.60-1.20); Glomerular Filtration Rate >60 (60-); Glucose, Blood 98 mg/dL (70-99); Potassium, Blood 4.7 mmol/L (3.5-5.5); Sodium, Blood 126 mmol/L (136-145)
--- NOTE | 2021-06-29 18:23 | NUR ---
PT IS AO X 4,PT IS ON ROOM AIR,PT IS ON TELE RUNNING SINUS BANDLE BRANCH BLOCK AT 63.PT HAVE A BM TODAY,GAVE UPDATE TO PT SON,PT ASSESSMENT REMAIN UNCHANGED,PT IS IN BED,CALL LIGHT IN REACH WILL CONTINUE TO MONITOR.
[2021-06-30 05:47] LABS: Anion Gap 6 mmol/L (6-16); Blood Urea Nitrogen 12 mg/dL (8-24); Bun/Creatinine Ratio 10.8 (12.0-20.0); CO2, Blood 29 mmol/L (21-32); Calcium, Blood 8.8 mg/dL (8.5-10.1); Chloride, Blood 94 mmol/L (98-108); Creatinine, Blood 1.11 mg/dL (0.60-1.20); Glomerular Filtration Rate >60 (60-); Glucose, Blood 93 mg/dL (70-99); Potassium, Blood 4.6 mmol/L (3.5-5.5); Sodium, Blood 129 mmol/L (136-145)
--- NOTE | 2021-06-30 06:25 | NUR ---
SHIFT SUMMARY- PT. HAD NO ACUTE CHANGES DURING THE NIGHT. SLEPT T/O THE NIGHT, NO APPARENT DISTRESS NOTED. DENIED NEEDS DURING THE NIGHT, VSS. CALL LIGHT WITHIN REACH AND SIDE RAILS UPX2. WILL CONT TO MONITOR.
[2021-06-30] MEDS ORDERED: MIRALAX17 GM PO (12:01)
[2021-06-30] MEDS ORDERED: LOSA50 PO (12:01)
[2021-06-30] MEDS ORDERED: DULCOLAX400 MG/5 M PO (12:01)
[2021-06-30] MEDS ORDERED: DOCU100 PO (12:01)
[2021-06-30] MEDS ORDERED: PROM25 PO (12:02)
[2021-06-30] MEDS ORDERED: SODCHL1 PO (12:02)
[2021-06-30] MEDS ORDERED: B-1100 M2 PO (12:03)
--- NOTE | 2021-06-30 13:53 | NUR ---
PT DISCHARGED WITH INSTRUCTIONS. SON PICKING UP PT AND DRIVING HIM TO FACILITY IN [place]. PT MED CATED WITH PHENERGAN X1 50MG BERORE DC FOR ONGOING NAUSEA. IV IN L ARM DC'D. BELONGINGS SENT HOME WITH PT. WHEELCHAIR OUT TO CAR.
--- NOTE | 2021-06-30 16:42 | NUR ---
Pt d/c today into the care of the son who is driving the pt up to [place] for alcohol treatment. Pt will need f/u apt either while at treatment facility or when he gets home ([email or web address], 4:41 PM)
== END 2021-06-30 13:12 | disposition home or self-care (01) | DRG 644 ==
LOC: ER 11:21 → MEDS 15:23 → ENPENDDIS 06-30 12:02 → MEDS 06-30 13:12
PROVIDERS: Emergency Medicine; Internal Medicine Endocrinology, Diabetes & Metabolism; ADMIT Family Medicine
DX: E22.2 Syndrome of inappropriate secretion of antidiuretic hormone (principal); F10.188 Alcohol abuse with other alcohol-induced disorder; N40.0 Benign prostatic hyperplasia without lower urinary tract symptoms; K59.00 Constipation, unspecified; F41.1 Generalized anxiety disorder; I10 Essential (primary) hypertension; E78.5 Hyperlipidemia, unspecified; Z68.30 Body mass index [BMI] 30.0-30.9, adult; I73.9 Peripheral vascular disease, unspecified; Z88.5 Allergy status to narcotic agent; Z98.890 Other specified postprocedural states; Z87.891 Personal history of nicotine dependence; Z79.899 Other long term (current) drug therapy; E66.9 Obesity, unspecified; E78.00 Pure hypercholesterolemia, unspecified; F32.9 Major depressive disorder, single episode, unspecified; K70.30 Alcoholic cirrhosis of liver without ascites
CPT/HCPCS: 36415; 76705; 80048; 80053; 80069; 83735; 83935; 84300; 85025; 93005; 93010; 97110; 97112; 97116; 97116-CQ; 97162; 97166; 97530; 97530-CQ; 97535; 99285-25; A9270; J1650; J3411; J7030; J7120

== ENCOUNTER 2021-09-19 12:00 | Day surgery (SDC) | payer MEDICARE, OTHER ==
[~2021-09-19] VITALS: Ht 177.8 cm; Wt 88.4 kg
[~2021-09-19 12:00] MED LIST changes: +ALPR.5 PO; +AMLODIPINE-BEN1 EAC3 PO; +ATORVASTATIN CA20 MG PO; +B-1100 M2 PO; +BUPROPION XL150 M1 PO; +CILO100 PO; +DOCU100 PO; +DULCOLAX400 MG/5 M PO; +LOSA25 PO; +LOSA50 PO; +METO50ER PO; +MIRALAX17 GM PO; +PROM25 PO; +SODCHL1 PO
[2021-09-19] MEDS ORDERED: BUSP10 PO (12:57)
--- NOTE | 2021-09-19 14:50 | NUR ---
09/19/21 1450 Nelly Oliver 10ML OF NACL ADDED TO BUPIVICAINE 0.75% TO CREATE A LOCAL SOLUTION OF BUPIVICAINE 0.5%.
--- NOTE | 2021-09-19 17:16 | NUR ---
09/19/[id number] DEX MICHELLE PT BP WAS ELEVATED SLIGHLY HIGHER THAN PRE OP CLOSE TO DC AND THEN STAYED IN THE 180S/90SWITH MANDA HR 50S. NOTIFIED DR VILLALOBOS AND CALLED DR LIU ADVISED PT TO GO TO ER IF BP WAS HIGHER THAN BASELINE/TOLD THAT HE NEEDED TO F/U WITH HIS HEALTHCARE PROVIDER YAMILETH. HTN EDUCATION PROVIDED. PT AND SON ACKNOWLEDGED UNDERSTANDING OF IMPORTANCE OF CONTROLLING BP. PT WAS A/O AND STATED HE HAD NO PAIN OR NAUSEA. PT STATED THAT HE FELT GOOD AND READY TO DC.
== END 2021-09-19 17:09 | disposition home or self-care (01) ==
LOC: ORSCSDS 12:00
PROVIDERS: Orthopaedic Surgery
PROC: 0RGX04Z Fusion of Left Finger Phalangeal Joint with Internal Fixation Device, Open Approach (ICD-10-PCS; principal; 2021-09-19 13:30)
DX: S63.287A Dislocation of proximal interphalangeal joint of left little finger, initial encounter (principal); I10 Essential (primary) hypertension; Z87.891 Personal history of nicotine dependence; K74.60 Unspecified cirrhosis of liver; F41.9 Anxiety disorder, unspecified; Z79.899 Other long term (current) drug therapy
CPT/HCPCS: C1713; C1769; J0461; J0690; J1100; J2250; J2405; J2704; J3010; J7120

== ENCOUNTER 2022-05-23 20:22 | Emergency (ER) | payer MEDICARE, OTHER ==
[~2022-05-23] VITALS: Ht 177.8 cm; Wt 95.2 kg
[~2022-05-23 20:22] MED LIST changes: +BUSP10 PO
[2022-05-23 20:46] LABS: BASOPHILS ABSOLUTE AUTO 0.07 K/mm3 (0.00-0.23); BASOPHILS PERCENT AUTO 1 % (0-2); EOSINOPHILS ABSOLUTE AUTO 0.02 K/mm3 (0.00-0.68); EOSINOPHILS PERCENT AUTO 0 % (0-6); Hematocrit 42.3 % (37.0-53.0); Hemoglobin 14.9 g/dL (13.5-17.5); IMMATURE GRAN ABSOLUTE AUTO 0.06 K/mm3 (0.00-0.10); IMMATURE GRAN PERCENT AUTO 1 % (0-1); LYMPHOCYTES ABSOLUTE AUTO 1.63 K/mm3 (0.84-5.20); LYMPHOCYTES PERCENT AUTO 26 % (21-46); MONOCYTES ABSOLUTE AUTO 0.76 K/mm3 (0.16-1.47); MONOCYTES PERCENT AUTO 12 % (4-13); Mean Corpuscular HGB 34.3 pg (26.0-34.0); Mean Corpuscular HGB Conc 35.2 g/dL (31.5-36.5); Mean Corpuscular Volume 97 fL (80-100); NEUTROPHILS ABSOLUTE AUTO 3.76 K/mm3 (1.96-9.15); NEUTROPHILS PERCENT AUTO 60 % (41-73); Platelet Count 336 K/mm3 (150-400); RDW Coefficient Variation 12.3 % (11.7-14.2); RDW Standard Deviation 44.1 fL (35.1-46.3); Red Blood Cell Count 4.35 M/mm3 (4.30-5.90)
[2022-05-23 21:04] LABS: Albumin, Blood 3.7 g/dL (3.4-5.0); Bilirubin, Total 0.8 mg/dL (0.1-1.0); Bun/Creatinine Ratio 16.7 (12.0-20.0); Creatinine, Blood 1.14 mg/dL (0.60-1.20); Globulin, Blood 3.8 g/dL (2.2-4.0); Potassium, Blood 4.5 mmol/L (3.5-5.5); Total Protein, Blood 7.5 g/dL (6.4-8.2)
[2022-05-23 21:18] LABS: Source, Urine Voided
[2022-05-23 21:21] LABS: Appearance, Urine Clear (Clear); Bilirubin, Urine Neg (Neg); Blood, Urine 1+ (Neg); Color, Urine Yellow (P-Yellow); Glucose Qualitative, Urine Neg (Neg); Ketones, Urine 2+ (Neg); Leukocyte Esterase, Urine Neg (Neg); Nitrite, Urine Neg (Neg); Protein, Urine 2+ (Neg); Specific Gravity, Urine 1.025 (1.003-1.022); Urobilinogen, Urine NORM (Normal)
[2022-05-23 21:30] LABS: Bacteria Few /hpf; Hyaline Casts 0-2 /lpf (0-2); Squamous Epithelial Cells Few /hpf (Few); White Blood Cells, Urine 0-2 /hpf (0-5)
== END 2022-05-24 00:05 | disposition home or self-care (01) ==
LOC: ER 20:22
PROVIDERS: Emergency Medicine
DX: S06.0X0A Concussion without loss of consciousness, initial encounter (principal); I10 Essential (primary) hypertension; E78.5 Hyperlipidemia, unspecified; I25.10 Atherosclerotic heart disease of native coronary artery without angina pectoris; Z79.899 Other long term (current) drug therapy; Z88.5 Allergy status to narcotic agent; Z88.8 Allergy status to other drugs, medicaments and biological substances; W19.XXXA Unspecified fall, initial encounter
CPT/HCPCS: 36415; 70450; 80053; 81001; 85025; 93005; 93010

== ENCOUNTER 2022-07-22 08:08 | Day surgery (SDC) | payer MEDICARE, OTHER ==
[~2022-07-22] VITALS: Ht 175.3 cm; Wt 95.6 kg
[2022-07-22] MEDS ORDERED: ASPI81CH (08:23)
[2022-07-22] MEDS ORDERED: ALPR.25 (08:23)
[2022-07-22] MEDS ORDERED: ABILIFY MYCITE2 M2 (08:24)
[2022-07-22] MEDS ORDERED: ONDA4ODT (08:24)
--- NOTE | 2022-07-22 08:37 | NUR ---
07/22/22 0837 Paulina Cornelius PT TOOK MOVIE FOR BOWEL PREP WHICH IS NOT LISTED OPTION IN SYSTEM.
== END 2022-07-22 10:14 | disposition home or self-care (01) ==
LOC: ORSCSDS 08:08
PROVIDERS: Internal Medicine Gastroenterology
PROC: 0DJD8ZZ Inspection of Lower Intestinal Tract, Via Natural or Artificial Opening Endoscopic (ICD-10-PCS; principal; 2022-07-22 09:30)
DX: R19.7 Diarrhea, unspecified (principal); Z86.010 Personal history of colon polyps; Z80.0 Family history of malignant neoplasm of digestive organs; I10 Essential (primary) hypertension; I25.10 Atherosclerotic heart disease of native coronary artery without angina pectoris; E78.5 Hyperlipidemia, unspecified; F32.A Depression, unspecified; F41.1 Generalized anxiety disorder; Z79.899 Other long term (current) drug therapy
CPT/HCPCS: J2704; J7120

== ENCOUNTER → 2022-08-04 | Outpatient (CLI) | payer MEDICARE, OTHER ==
[~2022-08-04] MED LIST changes: +ABILIFY MYCITE2 M2; +ALPR.25; +ASPI81CH; +ONDA4ODT
[2022-08-04 17:12] LABS: Adenovirus F 40/41 Not Detected (NOT DETECT); Astrovirus Not Detected (NOT DETECT); Campylobacter Sp Not Detected (NOT DETECT); Cryptosporidium Not Detected (NOT DETECT); Cyclospora Cayetanensis Not Detected (NOT DETECT); E. Coli O157 Not Detected (NOT DETECT); Entamoeba Histolytica Not Detected (NOT DETECT); Enteroaggregative E. coli-EAEC Not Detected (NOT DETECT); Enteropathogenic E. coli-EPEC Not Detected (NOT DETECT); Enterotoxigenic E. coli-ETEC Not Detected (NOT DETECT); Giardia Lamblia Not Detected (NOT DETECT); Norovirus GI/GII Not Detected (NOT DETECT); Plesiomonas Shigelloides Not Detected (NOT DETECT); Rotavirus A Not Detected (NOT DETECT); Salmonella Sp Not Detected (NOT DETECT); Sapovirus Not Detected (NOT DETECT); Shiga Toxin-prod E. coli-STEC Not Detected (NOT DETECT); Shigella/Enteroin E. coli-EIEC Not Detected (NOT DETECT); Vibrio Cholerae Not Detected (NOT DETECT); Vibrio Sp Not Detected (NOT DETECT); Yersinia Enterocolitica Not Detected (NOT DETECT)
== END ==
LOC: LAB 07:00 → LAB SHORT 07:00
PROVIDERS: Nurse Practitioner Psychiatric/Mental Health
DX: R19.7 Diarrhea, unspecified (principal)
CPT/HCPCS: 87507

== ENCOUNTER 2022-11-06 08:02 | Day surgery (SDC) | payer MEDICARE, OTHER ==
[~2022-11-06] VITALS: Ht 177.8 cm; Wt 97.5 kg
== END 2022-11-06 11:45 | disposition home or self-care (01) ==
LOC: ORSCSDS 08:02
PROVIDERS: Internal Medicine Gastroenterology
PROC: 0DBL8ZX Excision of Transverse Colon, Via Natural or Artificial Opening Endoscopic, Diagnostic (ICD-10-PCS; principal; 2022-11-06 09:45)
PROC: 0DBM8ZX Excision of Descending Colon, Via Natural or Artificial Opening Endoscopic, Diagnostic (ICD-10-PCS; principal; 2022-11-06 09:45)
PROC: 0DBE8ZX Excision of Large Intestine, Via Natural or Artificial Opening Endoscopic, Diagnostic (ICD-10-PCS; principal; 2022-11-06 09:45)
DX: R19.7 Diarrhea, unspecified (principal); D12.3 Benign neoplasm of transverse colon; D12.4 Benign neoplasm of descending colon; K52.832 Lymphocytic colitis; Z86.010 Personal history of colon polyps; I10 Essential (primary) hypertension; I25.10 Atherosclerotic heart disease of native coronary artery without angina pectoris; E78.5 Hyperlipidemia, unspecified; F41.8 Other specified anxiety disorders; Z85.820 Personal history of malignant melanoma of skin; Z79.899 Other long term (current) drug therapy
CPT/HCPCS: 88305; J2250; J2704; J7120

== ENCOUNTER → 2022-12-29 | Outpatient (CLI) | payer MEDICARE, OTHER ==
[2022-12-29 10:07] LABS: BASOPHILS ABSOLUTE AUTO 0.05 K/mm3 (0.00-0.23); BASOPHILS PERCENT AUTO 1 % (0-2); EOSINOPHILS ABSOLUTE AUTO 0.12 K/mm3 (0.00-0.68); EOSINOPHILS PERCENT AUTO 1 % (0-6); Hematocrit 39.7 % (37.0-53.0); IMMATURE GRAN ABSOLUTE AUTO 0.26 K/mm3 (0.00-0.10); IMMATURE GRAN PERCENT AUTO 3 % (0-1); LYMPHOCYTES ABSOLUTE AUTO 1.12 K/mm3 (0.84-5.20); LYMPHOCYTES PERCENT AUTO 13 % (21-46); MONOCYTES ABSOLUTE AUTO 0.93 K/mm3 (0.16-1.47); MONOCYTES PERCENT AUTO 11 % (4-13); Mean Corpuscular HGB 33.5 pg (26.0-34.0); Mean Corpuscular HGB Conc 35.3 g/dL (31.5-36.5); Mean Corpuscular Volume 95 fL (80-100); Mean Platelet Volume 9.6 fL (9.1-12.4); NEUTROPHILS ABSOLUTE AUTO 6.25 K/mm3 (1.96-9.15); NEUTROPHILS PERCENT AUTO 72 % (41-73); Platelet Count 229 K/mm3 (150-400); RDW Coefficient Variation 12.5 % (11.7-14.2); RDW Standard Deviation 43.6 fL (35.1-46.3); Red Blood Cell Count 4.18 M/mm3 (4.30-5.90); White Blood Cell Count 8.73 K/mm3 (4.00-11.30)
[2022-12-29 10:24] LABS: Albumin, Blood 3.3 g/dL (3.4-5.0); Albumin/Globulin Ratio 0.9 (0.8-1.8); Bilirubin, Total 0.7 mg/dL (0.1-1.0); Bun/Creatinine Ratio 13.4 (12.0-20.0); Calcium, Blood 9.1 mg/dL (8.5-10.1); Creatinine, Blood 1.57 mg/dL (0.60-1.20); Globulin, Blood 3.5 g/dL (2.2-4.0); Total Protein, Blood 6.8 g/dL (6.4-8.2)
== END | disposition home or self-care (01) ==
LOC: LAB SHORT 09:55 → LAB 09:55
PROVIDERS: Physician Assistant
DX: R05.9 Cough, unspecified (principal)
CPT/HCPCS: 80053; 83735; 85025

== ENCOUNTER 2023-01-06 17:34 | Emergency (ER) | payer MEDICARE, OTHER ==
[~2023-01-06] VITALS: Ht 177.8 cm; Wt 94.3 kg
[2023-01-06 18:22] LABS: BASOPHILS ABSOLUTE AUTO 0.08 K/mm3 (0.00-0.23); BASOPHILS PERCENT AUTO 1 % (0-2); EOSINOPHILS ABSOLUTE AUTO 0.05 K/mm3 (0.00-0.68); EOSINOPHILS PERCENT AUTO 1 % (0-6); Hematocrit 38.8 % (37.0-53.0); Hemoglobin 13.4 g/dL (13.5-17.5); IMMATURE GRAN ABSOLUTE AUTO 0.12 K/mm3 (0.00-0.10); IMMATURE GRAN PERCENT AUTO 2 % (0-1); LYMPHOCYTES ABSOLUTE AUTO 1.29 K/mm3 (0.84-5.20); LYMPHOCYTES PERCENT AUTO 16 % (21-46); MONOCYTES ABSOLUTE AUTO 0.62 K/mm3 (0.16-1.47); MONOCYTES PERCENT AUTO 8 % (4-13); Mean Corpuscular HGB 33.2 pg (26.0-34.0); Mean Corpuscular HGB Conc 34.5 g/dL (31.5-36.5); Mean Corpuscular Volume 96 fL (80-100); Mean Platelet Volume 9.6 fL (9.1-12.4); NEUTROPHILS PERCENT AUTO 73 % (41-73); Platelet Count 270 K/mm3 (150-400); RDW Standard Deviation 46.5 fL (35.1-46.3); Red Blood Cell Count 4.04 M/mm3 (4.30-5.90); White Blood Cell Count 7.96 K/mm3 (4.00-11.30)
[2023-01-06 18:38] LABS: Albumin, Blood 3.4 g/dL (3.4-5.0); Bilirubin, Total 0.7 mg/dL (0.1-1.0); Bun/Creatinine Ratio 16.2 (12.0-20.0); Calcium, Blood 9.1 mg/dL (8.5-10.1); Creatinine, Blood 1.05 mg/dL (0.60-1.20); Globulin, Blood 3.5 g/dL (2.2-4.0); Potassium, Blood 3.4 mmol/L (3.5-5.5); Total Protein, Blood 6.9 g/dL (6.4-8.2)
[2023-01-07 03:15] VITALS: BP 151/82
== END 2023-01-07 03:27 | disposition home or self-care (01) ==
LOC: ER 17:34
PROVIDERS: Physician Assistant
DX: I70.201 Unspecified atherosclerosis of native arteries of extremities, right leg (principal); R06.02 Shortness of breath; I25.10 Atherosclerotic heart disease of native coronary artery without angina pectoris; I10 Essential (primary) hypertension; E78.5 Hyperlipidemia, unspecified; Z88.5 Allergy status to narcotic agent; Z88.8 Allergy status to other drugs, medicaments and biological substances; Z79.899 Other long term (current) drug therapy; R06.00 Dyspnea, unspecified; R53.83 Other fatigue; N18.30 Chronic kidney disease, stage 3 unspecified; D63.1 Anemia in chronic kidney disease; N25.81 Secondary hyperparathyroidism of renal origin; E78.00 Pure hypercholesterolemia, unspecified; E55.9 Vitamin D deficiency, unspecified; R76.9 Abnormal immunological finding in serum, unspecified; R94.6 Abnormal results of thyroid function studies
CPT/HCPCS: 36415; 71260; 80053; 82248; 82306; 82607; 82728; 82746; 83540; 83550; 83735; 83880; 83970; 84100; 84443; 84484; 85025; 85379; 93005; 93010; 93925; 99285-25; Q9967

== ENCOUNTER 2023-02-02 06:02 | Day surgery (SDC) | payer MEDICARE, OTHER ==
[~2023-02-02] VITALS: Ht 175.3 cm; Wt 93.8 kg
--- NOTE | 2023-02-02 06:29 | NUR ---
02/02/23 0629 Lillian Dkue TETRACAINE TO RIGHT EYE @ 0625 PLEDGET TO RIGHT EYE @ 0626 BY [facility].JAMES
[2023-02-02 08:03] VITALS: BP 127/73
== END 2023-02-02 08:10 | disposition home or self-care (01) ==
LOC: ORSCSDS 06:02
PROVIDERS: Student in an Organized Health Care Education/Training Program
PROC: 08DJ3ZZ Extraction of Right Lens, Percutaneous Approach (ICD-10-PCS; principal; 2023-02-02 07:30)
DX: H25.13 Age-related nuclear cataract, bilateral (principal); F41.9 Anxiety disorder, unspecified; E78.5 Hyperlipidemia, unspecified; K74.60 Unspecified cirrhosis of liver; I10 Essential (primary) hypertension; E66.9 Obesity, unspecified; Z68.30 Body mass index [BMI] 30.0-30.9, adult; Z87.891 Personal history of nicotine dependence; Z79.899 Other long term (current) drug therapy
CPT/HCPCS: J2001; J2250; J3010; J7040; V2632

== ENCOUNTER 2023-02-09 06:05 | Day surgery (SDC) | payer MEDICARE, OTHER ==
[~2023-02-09] VITALS: Ht 175.3 cm; Wt 95.3 kg
--- NOTE | 2023-02-09 06:43 | NUR ---
02/09/23 0643 Rudy Prieto CALL LIGHT WITHIN REACH. TETRACAINE IN LEFT EYE AT 0635, PLEDGETT IN LEFT EYE AT 0636.
[2023-02-09 08:01] VITALS: BP 97/58
--- NOTE | 2023-02-09 08:02 | NUR ---
02/09/23 0802 Carlos Manuel Mitchell STUDENT NURSES, JOHN HUNTER AND KESHAV MENDEZ ASSISTING WITH CARE.
== END 2023-02-09 08:15 | disposition home or self-care (01) ==
LOC: ORSCSDS 06:05
PROVIDERS: Student in an Organized Health Care Education/Training Program
PROC: 08DK3ZZ Extraction of Left Lens, Percutaneous Approach (ICD-10-PCS; principal; 2023-02-09 07:30)
DX: H25.12 Age-related nuclear cataract, left eye (principal); Z96.1 Presence of intraocular lens; F41.9 Anxiety disorder, unspecified; I10 Essential (primary) hypertension; E78.5 Hyperlipidemia, unspecified; J45.909 Unspecified asthma, uncomplicated; J44.9 Chronic obstructive pulmonary disease, unspecified; E66.9 Obesity, unspecified; Z68.31 Body mass index [BMI] 31.0-31.9, adult; Z79.899 Other long term (current) drug therapy
CPT/HCPCS: J2001; J2250; J3010; V2632